=== PATIENT | female | born 1960 | race Caucasian/White ===

== ENCOUNTER 2016-10-24 11:43 | Emergency (ER) | payer SELFPAY ==
[2016-10-24] MEDS ORDERED: Ketorolac 60 MG/2 ML SDV IM ONE (11:48)
--- NOTE | 2016-10-24 11:48 | EDM.PDOC ---
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 She denies any other concern and denies similar episodes in the past Review of systems: As per history of present illness and below otherwise all systems reviewed and negative. Past medical history: As per history of present illness and as reviewed below otherwise noncontributory. Surgical history: As per history of present illness and as reviewed below otherwise noncontributory. Social history: No reported history of drug or alcohol abuse. Family history: As per history of present illness and as reviewed below otherwise noncontributory. Physical exam: HEENT: Atraumatic, normocephalic, pupils reactive, negative for conjunctival pallor or scleral icterus, mucous membranes moist, throat clear, neck supple, nontender, trachea midline. Lungs: Clear to auscultation, breath sounds equal bilaterally, chest nontender. Heart: S1S2, regular, negative for clicks, rubs, or JVD. Abdomen: Soft, nondistended, nontender. Negative for masses or hepatosplenomegaly. Negative for costovertebral tenderness. Pelvis: Stable nontender. Genitourinary: Deferred. Rectal: Deferred. Extremities: Right wrist and hand are without any point tenderness no crepitation C medicine neurovascular exam is unremarkable there is no evidence of any tendon involvement. Neuro: Awake, alert, oriented. Cranial nerves II through XII unremarkable. Cerebellum unremarkable. Motor and sensory unremarkable throughout. Exam nonfocal. Diagnostics: X-ray right wrist right hand Therapeutics: Velcro splint Impression: #1 right wrist/hand pain etiology to determine rule out tenosynovitis Definitive disposition and diagnosis as appropriate pending reevaluation and review of above. - Related Data Allergies Allergy/AdvReac Type Severity Reaction Status Date / Time No Known Allergies Allergy Verified 01/02/15 11:30 Home Meds: Home Meds Atenolol 25 mg PO 07/01/14 [History] Citalopram Hydrobromide [Celexa] 40 mg PO 07/01/14 [History] buPROPion [Wellbutrin] 100 mg PO BID 07/01/14 [History] Ciprofloxacin HCl [Cipro] 250 mg PO 01/02/15 [History] Past Medical History - Past Surgical History Other Musculoskeletal Surgeries/Procedures:: right ankle Social & Family History - Tobacco Use Smoking Status *Q: Current Every Day Smoker Years of Tobacco use: 15 Packs/Tins Daily: 0.5 - Alcohol Use Days Per Week of Alcohol Use: 1 Number of Drinks Per Day: 6 Total Drinks Per Week: 6 - Recreational Drug Use Recreational Drug Use: No Review of Systems - Review of Systems Review Of Systems: ROS reveals no pertinent complaints other than HPI. ED EXAM, GENERAL - Physical Exam Exam: See Below (See dictation) Course - Orders/Labs/Meds Orders: Active Orders 24 hr Category Date Time Status Wrist Comp Min 3V Rt [CR] Stat Exams 10/24/16 11:45 Ordered Departure - Departure Time of Disposition: 11:47 Disposition: Home, Self-Care 01 Condition: Good Clinical Impression: Wrist pain - Discharge Information Additional Instructions: e following information is given to patients seen in the emergency department who are being discharged to home. This information is to outline your options for follow-up care. We provide all patients seen in our emergency department with a follow-up referral. The need for follow-up, as well as the timing and circumstances, are variable depending upon the specifics of your emergency department visit. If you don't have a primary care physician on staff, we will provide you with a referral. We always advise you to contact your personal physician following an emergency department visit to inform them of the circumstance of the visit and for follow-up with them and/or the need for any referrals to a consulting specialist. The emergency department will also refer you to a specialist when appropriate. This referral assures that you have the opportunity for followup care with a specialist. All of these measure are taken in an effort to provide you with optimal care, which includes your followup. Under all circumstances we always encourage you to contact your private physician who remains a resource for coordinating your care. When calling for followup care, please make the office aware that this follow-up is from your recent emergency room visit. If for any reason you are refused follow-up, please contact the [facility] emergency department at and asked to speak to the emergency department charge nurse. [facility] [address] [place] [id number] Motrin/Tylenol as directed splint as directed call to schedule routine appointment with hand surgery above return as needed as discussed - My Orders Last 24 Hours: My Active Orders 10/24/16 11:45 Wrist Comp Min 3V Rt [CR] Stat - Assessment/Plan Last 24 Hours: My Active Orders 10/24/16 11:45 Wrist Comp Min 3V Rt [CR] Stat
[2016-10-24 12:44] VITALS: BP 144/94
--- NOTE | 2016-10-25 16:21 | CR ---
EXAM DATE: 10/24/16 PATIENT'S AGE: 56 Patient: DEZ VIERA Facility: [place], [place] Site . Site : 1960 Study: XRay Extremity Right [id number]/17/2017 12:13:29 PM Ordering Physician: Lorena Garcia Final Report: INDICATION: Hand and wrist pain. TECHNIQUE: Three views right wrist and two views right hand. COMPARISON: None FINDINGS: Bones: No acute fracture. No dislocation. No suspicious bone lesion. Joint spaces: Unremarkable. Soft tissues: Unremarkable. IMPRESSION: No acute osseous abnormality. Dictated by Yakov Bowen MD @ 10/24/2016 12:39:44 PM Dictated by: Yakov Bowen MD @ 10/24/2016 12:39:48 (Electronic Signature) Report Signed by Proxy. SWEETIE
--- NOTE | 2016-10-25 16:22 | CR ---
EXAM DATE: 10/24/16 PATIENT'S AGE: 56 Patient: DEZ VIERA Facility: [place], [place] Site . Site : 1960 Study: XRay Extremity Right [id number]/17/2017 12:14:19 PM Ordering Physician: Lorena Garcia Final Report: INDICATION: Hand and wrist pain. TECHNIQUE: Three views right wrist and two views right hand. COMPARISON: None FINDINGS: Bones: No acute fracture. No dislocation. No suspicious bone lesion. Joint spaces: Unremarkable. Soft tissues: Unremarkable. IMPRESSION: No acute osseous abnormality. Dictated by Yakov Bowen MD @ 10/24/2016 12:40:13 PM Dictated by: Yakov Bowen MD @ 10/24/2016 12:40:22 (Electronic Signature) Report Signed by Proxy. SWEETIE
== END 2016-10-24 12:44 | disposition home or self-care (01) ==
LOC: MW.ED 11:43
DX: M25.531 Pain in right wrist (principal); F17.210 Nicotine dependence, cigarettes, uncomplicated
CPT/HCPCS: 73110; 73120; 96372; 99283; J1885; 99282

== ENCOUNTER 2017-04-01 06:21 | Day surgery (SDC) | payer MEDICAID ==
[2017-04-01] MEDS ORDERED: Scopolamine 1.5 MG Transdermal Patch TRDERM PRN (07:18)
--- NOTE | 2017-04-01 07:18 | PCM.PREANE ---
Preanesthetic Assessment - Anesthesia/Transfusion/Family Hx Anesthesia History: Prior Anesthesia Reaction Type of Anesthesia Reaction: Excessive Nausea/Vomiting Family History of Anesthesia Reaction: No Transfusion History: No Prior Transfusion(s) Intubation History: Unknown - Review of Systems General: No Symptoms Pulmonary: No Symptoms Cardiovascular: No Symptoms Gastrointestinal: No Symptoms Neurological: No Symptoms Other: Reports: None - Physical Assessment Height: 1.65 m Weight: 92.079 kg ASA Class: 2 Mental Status: Alert & Oriented x3 Airway Class: Mallampati = 2 Dentition: Reports: Normal Dentition, Bridge (one tooth upper front) Thyro-Mental Finger Breadths: 3 Mouth Opening Finger Breadths: 3 ROM/Head Extension: Full Lungs: Clear to Auscultation, Normal Respiratory Effort Cardiovascular: Regular Rate, Regular Rhythm - Lab Values: Laboratory Last Values POC Glucose 101 mg/dL (60-110) 04/01/17 06:49 - Allergies Allergies/Adverse Reactions: Allergies Allergy/AdvReac Type Severity Reaction Status Date / Time No Known Allergies Allergy Verified 03/28/17 11:26 - Blood Blood Available: No - Anesthesia Plan Pre-Op Medication Ordered: None - Acknowledgements Anesthesia Type Planned: General Anesthesia Pt an Appropriate Candidate for the Planned Anesthesia: Yes Alternatives and Risks of Anesthesia Discussed w Pt/Guardian: Yes Pt/Guardian Understands and Agrees with Anesthesia Plan: Yes PreAnesthesia Questionnaire Other HEENT History: wears glasses, has upper removable partial denture Cardiovascular History: Reports: Hypertension Gastrointestinal History: Reports: Hiatal Hernia Musculoskeletal History: Reports: Fracture, Other (See Below) Other Musculoskeletal History: hx of fx right ankle, hx of dislocated right elbow Neurological History: Reports: Migraines Psychiatric History: Reports: Depression Endocrine/Metabolic History: Reports: Diabetes, Type II, Obesity/BMI 30+ Other Endocrine/Metabolic History: has taken meds for diabetes in the past- now diet controlled Hematologic History: - Infectious Disease History Infectious Disease History: Reports: Chicken Pox, Influenza - Past Surgical History Female Surgical History: Reports: Hysterectomy, Other (See Below) Other Female Surgeries/Procedures: removable of ovarian cysts Musculoskeletal Surgical History: Reports: ORIF Other Musculoskeletal Surgeries/Procedures:: hx of ORIF right ankle, hardware removed - SUBSTANCE USE Smoking Status *Q: Current Every Day Smoker (trying to quit with nicotine patch , down to few cigarettes per day) Tobacco Use Within Last Twelve Months: Cigarettes Days Per Week of Alcohol Use: 1 Number of Drinks Per Day: 6 Total Drinks Per Week: 6 Recreational Drug Use History: No - HOME MEDS Home Medications: Home Meds Citalopram Hydrobromide [Celexa] 20 mg PO DAILY 07/01/14 [History] buPROPion [Wellbutrin] 150 mg PO DAILY 07/01/14 [History] Atenolol/Chlorthalidone [Atenolol-Chlorthalidone 50-25] 1 tab PO DAILY 03/28/17 [History] Nicotine [Nicoderm CQ] 21 mg TOP DAILY 03/28/17 [History] Pregabalin [Lyrica] 75 mg PO DAILY 03/28/17 [History] atorvaSTATin [Lipitor] 20 mg PO BEDTIME 03/28/17 [History] traMADol [Ultram] 50 mg PO BID PRN 03/28/17 [History] - CURRENT (IN HOUSE) MEDS Current Meds: Current Medications Bupivacaine HCl/Epinephrine Bitart (Marcaine 0.25%/Epinephrine 1:200,000) 10 ml INJECT ONETIME ONE Stop: 04/01/17 08:01 Cefazolin Sodium/Dextrose 2 gm (/ Premix) 50 mls @ 100 mls/hr IV ONETIME ONE Stop: 04/01/17 08:29 Lactated Ringer's (Ringers, Lactated) 1,000 mls @ 500 mls/hr IV .BOLUS JAENTH Last Admin: 04/01/17 07:03 Dose: 500 mls/hr
[2017-04-01] MEDS ORDERED: Propofol 200 MG/20 ML SDV ONE (07:31)
[2017-04-01] MEDS ORDERED: Midazolam 1 MG/ML 2 ML SDV ONE (07:31)
[2017-04-01] MEDS ORDERED: fentaNYL 100 MCG/2 ML SDV ONE (07:31)
[2017-04-01] MEDS ORDERED: Lidocaine 2% 5 ML SDV ONE (07:31)
[2017-04-01] MEDS ORDERED: Bupivacaine 25%/EPINEPHrine/PF 30 ML ONE (07:34)
[2017-04-01] MEDS ORDERED: ceFAZolin/Dextrose,Iso-Osmotic 2 GM/50 ML Duplex Bag IV ONE (07:52)
[2017-04-01] MEDS ORDERED: Bupivacaine 0.25%/EPINEPHrine 1:200,000 10 ML SDV INJECT ONE (08:00)
[2017-04-01] MEDS ORDERED: Lactated Ringers 1,000 ML IV SCH (08:00)
[2017-04-01] MEDS ORDERED: ceFAZolin 2 GM in Premix Bag 1 BAG IV ONE (08:00)
[2017-04-01] MEDS ORDERED: Dexamethasone 4 MG/ML 5 ML MDV ONE (08:15)
[2017-04-01] MEDS ORDERED: ePHEDrine 50 MG/ML SDV ONE (08:23)
[2017-04-01] MEDS ORDERED: Sodium Chloride 0.9% 20 ML ONE (08:24)
[2017-04-01] MEDS ORDERED: Glycopyrrolate 0.2 MG/ML SDV ONE (08:37)
[2017-04-01] MEDS ORDERED: Ketorolac 30 MG/ML SDV ONE (08:50)
[2017-04-01] MEDS ORDERED: Acetaminophen 1,000 MG in Premix Bag 1 BAG IV ONE (09:16)
--- NOTE | 2017-04-01 09:23 | PCM.OPNOTE ---
- General Post-Op/Procedure Note Date of Surgery/Procedure: 04/01/17 Operative Procedure(s): right carpal and cubital tunnel release Pre Op Diagnosis: right carpal and cubital tunnel syndrome Post-Op Diagnosis: Same Anesthesia Technique: General LMA, Local Primary Surgeon: Shaniqua Ovalle Drafting Detailer: Theresa Oliver Reason Drafting Detailer Was Necessary: retraction, prepping draping and closure assistance Complications: None Condition: Good
--- NOTE | 2017-04-01 09:44 | PCM.POSTAN ---
POST ANESTHESIA ASSESSMENT - MENTAL STATUS Mental Status: Alert, Oriented - RESPIRATORY Respiratory Status: Respiratory Rate WNL, Airway Patent, O2 Saturation Stable - CARDIOVASCULAR CV Status: Pulse Rate WNL, Blood Pressure Stable - GASTROINTESTINAL GI Status: No Symptoms - PAIN Pain Score: 5 - POST OP HYDRATION Hydration Status: Adequate & Stable - OBSERVATIONS Free Text/Narrative:: no anesthesia problems
--- NOTE | 2017-04-01 10:12 | PCM48HPAN ---
Post Anesthesia Note - EVALUATION WITHIN 48HRS OF ANESTHETIC Vital Signs in Normal Range: Yes Patient Participated in Evaluation: Yes Respiratory Function Stable: Yes Airway Patent: Yes Cardiovascular Function Stable: Yes Hydration Status Stable: Yes Pain Control Satisfactory: Yes Nausea and Vomiting Control Satisfactory: Yes Mental Status Recovered: Yes Resp Rate: 12 - COMMENTS/OBSERVATIONS Free Text/Narrative:: no anesthesia problems
[2017-04-01 12:18] VITALS: BP 120/75
--- NOTE | 2017-04-01 15:37 | PCM.OPNOTE ---
- General Post-Op/Procedure Note Date of Surgery/Procedure: 04/01/17 Operative Procedure(s): right carpal and cubital tunnel release Pre Op Diagnosis: right carpal and cubital tunnel Post-Op Diagnosis: Same Anesthesia Technique: General LMA, Local Primary Surgeon: Shaniqua Ovalle Teletype Operator: Theresa Oliver Complications: None Condition: Good Free Text/Narrative:: Intake & Output 03/31/17 04/01/17 04/01/17 23:59 07:59 15:59 Intake Total 300 Balance 300
--- NOTE | 2017-04-01 22:48 | OR ---
SURGEON: ANDRES HUMMEL MD DATE OF PROCEDURE: 04/01/2017 PREOPERATIVE DIAGNOSIS: Right carpal and cubital tunnel syndrome. POSTOPERATIVE DIAGNOSIS: Right carpal and cubital tunnel syndrome. PROCEDURE: Right cubital tunnel release and right carpal tunnel release. COOPERATIVE EXTENSION AGENT: ALIE Aguirre. Reason for behavioral assistant was prepping, draping, closure, and positioning assistance. INDICATIONS: Ms. Garg is a 56-year-old female with right upper extremity cubital and carpal tunnel syndrome. Risks and benefits of release were discussed with her. She has failed conservative management and continues to have significant symptoms. Risks were including, but not limited to, bleeding, infection, damage to underlying or overlying structures, possible need for future interventions, possible scarring. PROCEDURE IN DETAIL: After informed consent was obtained and placed on the chart, the patient was brought to the operating theater and laid in supine position. After adequate local general LMA, anesthesia was obtained. The area was prepped and draped and a time-out was completed to confirm side and site. Attention was then paid to exsanguination of the arm and insufflation of the tourniquet 200 mmHg. Attention was then paid to dissection of the transverse carpal ligament using a 15 blade through the skin and subcutaneous tissue with coverage of the ligament. Dissection was then carried distally and proximally until complete release under direct visualization. The area was irrigated and closed using 5-0 nylon stitch in a horizontal mattress fashion. Attention was then paid to the cubital tunnel and a 15 blade was used to dissect through the skin and subcutaneous tissues directly overlying this. A Littler scissor dissection was carried in the subcutaneous plane to allow dissection and prevent nerve disruption. The nerve was reached easily proximal to the cubital tunnel and then dissection was carried distally until complete release all the way through the flexor carpi ulnaris fascia. Once adequately released and then passage of finger allowed free dissection, attention was paid to proximal dissection until complete release again from the brachial fascia. Once adequately completed and released the entire way, meticulous hemostasis was obtained after deflation of the tourniquet. The wound was then closed with deep 3-0 and running 4-0 subcuticular for the skin. It was dressed with Steri-Strips here. The wrist was then dressed with Xeroform fluffs and a Kerlix gauze dressing and the wrist was dressed with a 3- inch Hemanth wrap and the upper arm was dressed with a 3-inch Hemanth wrap for light compression to allow for swelling. The patient tolerated the procedure well. All counts and needles were correct at the end of the case. FOLLOWUP INSTRUCTIONS: The patient was given a prescription for pain control and will see us in 10 to 14 days, sooner if any problems, questions, or concerns. VANESSA / SANTI /[id number]
== END 2017-04-01 10:40 | disposition home or self-care (01) ==
LOC: MW.SDS 06:21
PROVIDERS: ATTEND Plastic Surgery
DX: G56.01 Carpal tunnel syndrome, right upper limb (principal); G56.21 Lesion of ulnar nerve, right upper limb; I10 Essential (primary) hypertension; F32.9 Major depressive disorder, single episode, unspecified; G43.909 Migraine, unspecified, not intractable, without status migrainosus; E11.9 Type 2 diabetes mellitus without complications; E66.9 Obesity, unspecified; F17.210 Nicotine dependence, cigarettes, uncomplicated; Z68.30 Body mass index [BMI] 30.0-30.9, adult; Z79.899 Other long term (current) drug therapy
CPT/HCPCS: 64718; 64721; 82962; A9270; J0690; J1100; J1885; J2250; J3010; J7120; 01810; J2704

== ENCOUNTER 2018-05-01 10:10 | Day surgery (SDC) | payer MEDICAID ==
[~2018-05-01 10:10] MED LIST: Lactated Ringers 1,000 ML IV SCH; ceFAZolin 2 GM in Premix Bag 1 BAG IV ONE
--- NOTE | 2018-05-01 10:57 | PCM.PREANE ---
Preanesthetic Assessment - Anesthesia/Transfusion/Family Hx Anesthesia History: Prior Anesthesia Reaction Family History of Anesthesia Reaction: No Transfusion History: No Prior Transfusion(s) Intubation History: Unknown - Review of Systems General: No Symptoms Pulmonary: No Symptoms Cardiovascular: No Symptoms Gastrointestinal: No Symptoms Neurological: No Symptoms Other: Reports: None - Physical Assessment Height: 1.64 m Weight: 102.058 kg ASA Class: 2 Mental Status: Alert & Oriented x3 Airway Class: Mallampati = 2 Dentition: Reports: Normal Dentition, Bridge (one tooth up front) Thyro-Mental Finger Breadths: 2 Mouth Opening Finger Breadths: 2 ROM/Head Extension: Limited/Partial Lungs: Clear to Auscultation, Normal Respiratory Effort Cardiovascular: Regular Rate, Regular Rhythm - Allergies Allergies/Adverse Reactions: Allergies Allergy/AdvReac Type Severity Reaction Status Date / Time No Known Allergies Allergy Verified 04/26/18 11:23 - Blood Blood Available: No - Anesthesia Plan Pre-Op Medication Ordered: None - Acknowledgements Anesthesia Type Planned: General Anesthesia Pt an Appropriate Candidate for the Planned Anesthesia: Yes Alternatives and Risks of Anesthesia Discussed w Pt/Guardian: Yes Pt/Guardian Understands and Agrees with Anesthesia Plan: Yes PreAnesthesia Questionnaire HEENT History: Reports: Other (See Below) Other HEENT History: wears glasses/contacts, has removable upper "flipper" denture (one tooth) Cardiovascular History: Reports: High Cholesterol, Hypertension Respiratory History: Reports: Other (See Below) (to be tested for sleep apnea) Gastrointestinal History: Reports: GERD, Hiatal Hernia Genitourinary History: Reports: Renal Calculus Musculoskeletal History: Reports: Fracture, Neck Pain, Chronic Other Musculoskeletal History: hx of fx right ankle Neurological History: Reports: Migraines, Other (See Below) Other Neuro History: nerve pain right arm Psychiatric History: Reports: Anxiety, Depression Endocrine/Metabolic History: Reports: Obesity/BMI 30+, Other (See Below) Other Endocrine/Metabolic History: Pre-diabetic Hematologic History: - Infectious Disease History Infectious Disease History: Reports: Chicken Pox, Influenza - Past Surgical History Female Surgical History: Reports: Breast Biopsy, Cystectomy, Hysterectomy, Salpingo-Oophorectomy, Other (See Below) Other Female Surgeries/Procedures: Laparoscopy x3 for removal of Ovarian cysts Musculoskeletal Surgical History: Reports: Carpal Tunnel, ORIF, Other (See Below ) Other Musculoskeletal Surgeries/Procedures:: Cubital tunnel release, Transposition of right Ulnar nerve, ORIF right ankle- no hardware used - SUBSTANCE USE Smoking Status *Q: Current Every Day Smoker (1/2 ppd) Tobacco Use Within Last Twelve Months: Cigarettes Recreational Drug Use History: No - HOME MEDS Home Medications: Home Meds Atenolol/Chlorthalidone [Atenolol-Chlorthalidone 50-25] 1 tab PO DAILY 03/28/17 [History] Pregabalin [Lyrica] 150 mg PO TID 03/28/17 [History] atorvaSTATin [Lipitor] 40 mg PO BEDTIME 03/28/17 [History] Aspirin [Adult Low Dose Aspirin EC] 81 mg PO DAILY 04/26/18 [History] Escitalopram [Lexapro] 20 mg PO DAILY 04/26/18 [History] Lidocaine 5% [Lidoderm 5%] 1 patch TOP DAILY 04/26/18 [History] Nortriptyline HCl [Pamelor] 100 mg PO BEDTIME 04/26/18 [History] - CURRENT (IN HOUSE) MEDS Current Meds: Current Medications Lactated Ringer's (Ringers, Lactated) 1,000 mls @ 125 mls/hr IV ASDIRECTED JANETH Discontinued Medications Cefazolin Sodium/Dextrose 2 gm (/ Premix) 50 mls @ 100 mls/hr IV ONETIME ONE Stop: 04/30/18 22:51
[2018-05-01] MEDS ORDERED: Propofol 200 MG/20 ML SDV ONE (11:10)
[2018-05-01] MEDS ORDERED: Ondansetron 4 MG/2 ML SDV ONE (11:10)
[2018-05-01] MEDS ORDERED: Lidocaine 2% 5 ML SDV ONE (11:10)
[2018-05-01] MEDS ORDERED: fentaNYL 250 MCG/5 ML SDV ONE (11:10)
[2018-05-01] MEDS ORDERED: Midazolam 1 MG/ML 2 ML SDV ONE (11:10)
[2018-05-01] MEDS ORDERED: ceFAZolin 1 GM Vial ONE (11:12)
[2018-05-01] MEDS ORDERED: Sodium Chloride 0.9% 20 ML ONE (11:12)
[2018-05-01] MEDS ORDERED: Bupivacaine 0.5% 30 ML SDV ONE (11:26)
[2018-05-01] MEDS ORDERED: Phenylephrine/Normal Saline 100 MCG/ML 10 ML Syringe ONE (12:15)
[2018-05-01] MEDS ORDERED: Vasopressin 20 Units/1 ML MDV ONE (12:20)
[2018-05-01] MEDS ORDERED: Glycopyrrolate 0.2 MG/ML SDV ONE (12:53)
--- NOTE | 2018-05-01 14:19 | PCM.OPNOTE ---
- General Post-Op/Procedure Note Date of Surgery/Procedure: 05/01/18 Operative Procedure(s): open plantar fasciotomy and plantar calcaneal spur resection right foot Findings: consistent with diagnoses Pre Op Diagnosis: 1. plantar fasciitis right foot. 2. plantar calcaneal spur right foot Post-Op Diagnosis: 1. plantar fasciitis right foot. 2. plantar calcaneal spur right foot Anesthesia Technique: General LMA Primary Surgeon: Brayden Connell Pathology: bone right calcaneal spur EBL in mLs: 5 Complications: none Condition: Good Free Text/Narrative:: Intake & Output 04/30/18 05/01/18 05/01/18 22:59 06:59 14:59 Intake Total 1600 Balance 1600 materials: 4-0 vicryl, 3-0 prolene injectables: 10 ml 0.5% marcaine plain
--- NOTE | 2018-05-01 14:31 | PN ---
SUBJECTIVE: The patient is a 57-year-old female. Date of surgery is May 01, 2018. Surgeon is Brayden Connell DPM. PLANNED PROCEDURE: Open plantar fasciotomy and plantar calcaneal spur resection, right foot. ALLERGIES: No known drug allergies. PAST MEDICAL HISTORY: Active problems include arm pain, depression, type 2 diabetes, headache, hand pain, hypertension, neck pain, and the patient is a current smoker, also possible sleep apnea. PAST SURGICAL HISTORY: Procedure history of total hysterectomy, right ankle surgery, three laparoscopies for ovarian cysts, and a right cubital tunnel release. The patient has no difficulty with anesthesia from her prior surgical history. LABORATORY DATA: Sodium 138, potassium 3.4, BUN is 14, CO2 29, chloride 101, glucose 94. Hemoglobin 16, hematocrit 47.1, white blood cell 5.64, red blood cell 9.18, platelets 268. Chest x-ray showed no acute abnormality and EKG did have an abnormality and the patient was then sent for cardiac clearance especially given a family history of heart disease, so the patient was cleared by the washroom operator, Dr. Petty, with statement that she is intermediate risk for surgery but otherwise requires no further cardiac workup and is cleared for surgery. The patient presents for surgical treatment today consisting of an open plantar fasciotomy and calcaneal spur resection of the right foot. No guarantees have been expressed or implied. All of patient's questions have been answered. Risks and benefits have been discussed with the patient, and the patient has consented in writing with a witness present and written consent has been placed in the patient's chart. MILTON / SANTI /[id number]
--- NOTE | 2018-05-01 14:35 | PCM.POSTAN ---
POST ANESTHESIA ASSESSMENT - MENTAL STATUS Mental Status: Alert - RESPIRATORY Respiratory Status: Respiratory Rate WNL - CARDIOVASCULAR CV Status: Pulse Rate WNL, Blood Pressure Stable - GASTROINTESTINAL GI Status: No Symptoms - PAIN Pain Score: 2 - POST OP HYDRATION Hydration Status: Adequate & Stable
[2018-05-01] MEDS ORDERED: Acetaminophen/HYDROcodone 325-7.5 MG Tab PO ONE (15:18)
[2018-05-01] MEDS ORDERED: Acetaminophen/HYDROcodone 325-5 MG Tab PO ONE (15:45)
[2018-05-01] MEDS ORDERED: fentaNYL 100 MCG/2 ML SDV IVPUSH PRN (16:05)
[2018-05-01 16:41] VITALS: BP 110/65
--- NOTE | 2018-05-02 05:28 | OR ---
SURGEON: Brayden Connell DPM DATE OF PROCEDURE: 05/01/2018 PRIMARY SURGEON: Brayden Connell DPM OPERATIVE PROCEDURE: Open plantar fasciotomy and resection of plantar calcaneal spur, right foot. PREOPERATIVE DIAGNOSIS: Plantar fasciitis and plantar calcaneal spur, right foot. POSTOPERATIVE DIAGNOSIS: Plantar fasciitis and plantar calcaneal spur, right foot. ANESTHESIA: General. HEMOSTASIS: Above-ankle pneumatic tourniquet inflated to a pressure of 250 mmHg after an Esmarch bandage exsanguination of the right lower extremity. ESTIMATED BLOOD LOSS: 5 mL. PATHOLOGY: Bone from plantar calcaneal spur, right foot. MATERIALS: 4-0 Vicryl, 3-0 nylon. INJECTABLES: 10 mL of 0.5% Marcaine plain. FINDINGS: Consistent with diagnoses. COMPLICATIONS: None. CONDITION: The patient tolerated the procedure and the anesthesia well with vital signs stable and neurovascular status intact to all digits of the right foot. JUSTIFICATION FOR THE PROCEDURE: The patient has suffered for a long time with right heel pain and has undergone numerous conservative treatments to the right foot including stretching exercises, supports, and steroid injections as well as casting and use of pneumatic boot, none of which have provided satisfactory relief to the patient, and the patient has elected for surgery consisting of open plantar fasciotomy and resection of the plantar calcaneal spur. The patient did have x-ray prior to coming to my office, which demonstrated an 11 mm plantar spur which is significant and possibly contributing to her pain. The patient and I discussed the risks and benefits of surgery. All the patient questions were asked and answered, and no guarantees were expressed or implied. The patient gave written consent with a witness present, and it was placed in the patient's chart consenting for the surgical procedures today. PROCEDURE IN DETAIL: Open plantar fasciotomy with plantar calcaneal spur resection, right foot. The patient was brought to the operating room, placed on the operating table in a supine position, at which time an aseptic scrub and drape was performed about the patient's right lower extremity. The above-ankle pneumatic tourniquet was affixed just above the malleoli of the right ankle. The patient was scrubbed and draped. Preoperative x-ray was taken documenting the plantar calcaneal spur, and following the inflation of the tourniquet, an incision was made from medial to lateral across the medial half of the plantar heel just distal to the location of the plantar calcaneal spur following the planned marked incision site. The incision was made with a #15 blade and deepened through the skin into the subcutaneous tissue, which was then dissected with a combination of sharp and blunt dissection and use of the Bovie to cut through the fat layer until the plantar fascia was reached, and using a Weitlaner retractor, self-retaining, the plantar fascia was exposed and readily identified, and the plantar spur was palpated using a Poplar elevator as well as a hemostat within the fibers and just deep to the plantar fascia. A #15 blade was used to cut the majority of the medial half of the plantar fascia, cutting the medial band of the fascia. Cautery was used to remove a small piece of the fascia in order to leave a gap of approximately half a centimeter to ensure that fascia did not reattach. This also enabled ready access to the plantar calcaneal spur, which was palpated, visualized, confirmed with intraoperative fluoroscopy, and resected using an osteotome and bone rongeur to remove segments of the spur, which were sent to Pathology for gross examination. The remaining spur was then rasped smooth using a reciprocating rasp, and the area which had already been flushed was flushed again with copious amounts of normal sterile saline, and the remnants were flushed out of the resected spur. The area was reinspected, judged to be properly resected regarding the spur, and the plantar fascia was sufficiently cut on the medial side to enable relief of the patient's symptoms. The area was then closed with the subcutaneous fat reapproximated using 4-0 Vicryl, and the superficial skin reapproximated with multiple 3-0 nylon horizontal sutures. 10 mL of 0.5% Marcaine plain was infiltrated about the surgical sites. Betadine- soaked Xeroform gauze was placed over the incision site. Final intraoperative x- ray was taken and demonstrated full resection of the plantar calcaneal spur which additional x-rays prior to that had already verified as well following the resection. The Betadine-soaked Xeroform gauze overlying the incision site was then covered with 4 x 4 fluff gauze and Kerlix roll. The tourniquet was then deflated at a time of 74 minutes, and a stockinette and cast padding followed by multiple rolls of fiberglass cast were then applied to protect the patient's foot during the recovery period as agreed with the patient prior to surgery. The patient tolerated the procedure and the anesthesia well with vital signs stable and vascular status intact as verified by prompt hyperemic response to the digits of the right foot following deflation of the tourniquet. Once in the recovery room, the cast was bivalved and secured with Hemanth bandages to allow for any swelling that may occur, and the patient has been provided with prescription for adequate analgesic care and written instructions regarding followup and contact information for both my office and cell phone should she need it, and to schedule the followup within 2 weeks. The patient is instructed to contact me with any questions she may have and has also been provided with crutches to ensure nonweightbearing status over the initial recovery period. MILTON / SANTI /[id number]
--- NOTE | 2018-05-02 14:18 | CR ---
EXAMINATION: Right foot HISTORY: Fasciotomy COMPARISON: None TECHNIQUE: 2 views FINDINGS/IMPRESSION: Operative control films demonstrate removal of a plantar calcaneus.
== END 2018-05-01 16:40 | disposition home or self-care (01) ==
LOC: MW.SDS 10:10
PROVIDERS: ATTEND Podiatrist Foot & Ankle Surgery
DX: M72.2 Plantar fascial fibromatosis (principal); M77.31 Calcaneal spur, right foot; I10 Essential (primary) hypertension; E11.9 Type 2 diabetes mellitus without complications; F17.200 Nicotine dependence, unspecified, uncomplicated; E66.9 Obesity, unspecified; Z68.37 Body mass index [BMI] 37.0-37.9, adult; E78.5 Hyperlipidemia, unspecified; Z79.899 Other long term (current) drug therapy
CPT/HCPCS: 28119; A9270; J0690; J2001; J2250; J2370; J2704; J3010; J3490; J7120; 01470; J2405

== ENCOUNTER 2018-05-23 21:19 | Emergency (ER) | payer MEDICAID ==
--- NOTE | 2018-05-23 21:42 | EDM.PDOC ---
ED HPI GENERAL MEDICAL PROBLEM - General Stated Complaint: POSSIBLE INFECTION IN RT HEEL Time Seen by Provider: 05/23/18 21:26 - History of Present Illness INITIAL COMMENTS - FREE TEXT/NARRATIVE: HISTORY AND PHYSICAL: History of present illness: Patient 58-year-old female with recent foot surgery present since her possible infection to her right heel there's been no fever no chills no other complaints she has had a mild wound dehiscence with some scant discharge per family is been no other concern or trauma. Review of systems: As per history of present illness and below otherwise all systems reviewed and negative. Past medical history: As per history of present illness and as reviewed below otherwise noncontributory. Surgical history: As per history of present illness and as reviewed below otherwise noncontributory. Social history: No reported history of drug or alcohol abuse. Family history: As per history of present illness and as reviewed below otherwise noncontributory. Physical exam: HEENT: Atraumatic, normocephalic, pupils reactive, negative for conjunctival pallor or scleral icterus, mucous membranes moist, throat clear, neck supple, nontender, trachea midline. Lungs: Clear to auscultation, breath sounds equal bilaterally, chest nontender. Heart: S1S2, regular, negative for clicks, rubs, or JVD. Abdomen: Soft, nondistended, nontender. Negative for masses or hepatosplenomegaly. Negative for costovertebral tenderness. Pelvis: Stable nontender. Genitourinary: Deferred. Rectal: Deferred. Extremities: Right heel has a wound that is healing with some superficial dehiscence noted in some scant discharge noted on the Band-Aid is minimal swelling no erythema no malodor or other significant finding CMS neurovascular exams unremarkable Neuro: Awake, alert, oriented. Cranial nerves II through XII unremarkable. Cerebellum unremarkable. Motor and sensory unremarkable throughout. Exam nonfocal. Diagnostics: CBC CMP x-ray right Therapeutics: None Impression: #1 history of recent foot surgery rule out postoperative infection Definitive disposition and diagnosis as appropriate pending reevaluation and review of above. - Related Data Allergies Allergy/AdvReac Type Severity Reaction Status Date / Time No Known Allergies Allergy Verified 04/26/18 11:23 Home Meds: Home Meds Atenolol/Chlorthalidone [Atenolol-Chlorthalidone 50-25] 1 tab PO DAILY 03/28/17 [History] Pregabalin [Lyrica] 150 mg PO TID 03/28/17 [History] atorvaSTATin [Lipitor] 40 mg PO BEDTIME 03/28/17 [History] Aspirin [Adult Low Dose Aspirin EC] 81 mg PO DAILY 04/26/18 [History] Escitalopram [Lexapro] 20 mg PO DAILY 04/26/18 [History] Lidocaine 5% [Lidoderm 5%] 1 patch TOP DAILY 04/26/18 [History] Nortriptyline HCl [Pamelor] 100 mg PO BEDTIME 04/26/18 [History] Past Medical History HEENT History: Reports: Other (See Below) Other HEENT History: wears glasses/contacts, has removable upper "flipper" denture (one tooth) Cardiovascular History: Reports: High Cholesterol, Hypertension Respiratory History: Reports: Other (See Below) Gastrointestinal History: Reports: GERD, Hiatal Hernia Genitourinary History: Reports: Renal Calculus Musculoskeletal History: Reports: Fracture, Neck Pain, Chronic Other Musculoskeletal History: hx of fx right ankle Neurological History: Reports: Migraines, Other (See Below) Other Neuro History: nerve pain right arm Psychiatric History: Reports: Anxiety, Depression Endocrine/Metabolic History: Reports: Obesity/BMI 30+, Other (See Below) Other Endocrine/Metabolic History: Pre-diabetic Hematologic History: - Infectious Disease History Infectious Disease History: Reports: Chicken Pox, Influenza - Past Surgical History Female Surgical History: Reports: Breast Biopsy, Cystectomy, Hysterectomy, Salpingo-Oophorectomy, Other (See Below) Other Female Surgeries/Procedures: Laparoscopy x3 for removal of Ovarian cysts Musculoskeletal Surgical History: Reports: Carpal Tunnel, ORIF, Other (See Below ) Other Musculoskeletal Surgeries/Procedures:: Cubital tunnel release, Transposition of right Ulnar nerve, ORIF right ankle- no hardware used ED ROS GENERAL - Review of Systems Review Of Systems: ROS reveals no pertinent complaints other than HPI. ED EXAM, GENERAL - Physical Exam Exam: See Below (See dictation) Course - Orders/Labs/Meds Orders: Active Orders 24 hr Category Date Time Status Foot 2V Rt [CR] Stat Exams 05/23/18 21:27 Ordered CBC WITH AUTO DIFF [HEME] Stat Lab 05/23/18 21:27 Ordered COMPREHENSIVE METABOLIC PN,CMP [CHEM] Stat Lab 05/23/18 21:27 Ordered Departure - Departure Time of Disposition: 21:41 Disposition: Home, Self-Care 01 Condition: Good Clinical Impression: Postoperative wound infection, Encounter for medical screening examination - Discharge Information Referrals: PCP,None [Primary Care Provider] - Additional Instructions: The following information is given to patients seen in the emergency department who are being discharged to home. This information is to outline your options for follow-up care. We provide all patients seen in our emergency department with a follow-up referral. The need for follow-up, as well as the timing and circumstances, are variable depending upon the specifics of your emergency department visit. If you don't have a primary care physician on staff, we will provide you with a referral. We always advise you to contact your personal physician following an emergency department visit to inform them of the circumstance of the visit and for follow-up with them and/or the need for any referrals to a consulting specialist. The emergency department will also refer you to a specialist when appropriate. This referral assures that you have the opportunity for followup care with a specialist. All of these measure are taken in an effort to provide you with optimal care, which includes your followup. Under all circumstances we always encourage you to contact your private physician who remains a resource for coordinating your care. When calling for followup care, please make the office aware that this follow-up is from your recent emergency room visit. If for any reason you are refused follow-up, please contact the [facility] emergency department at and asked to speak to the emergency department charge nurse. Keflex as prescribed follow-up private medical doctor/podiatry as discussed return as needed as discussed - My Orders Last 24 Hours: My Active Orders 05/23/18 21:27 Foot 2V Rt [CR] Stat CBC WITH AUTO DIFF [HEME] Stat COMPREHENSIVE METABOLIC PN,CMP [CHEM] Stat - Assessment/Plan Last 24 Hours: My Active Orders 05/23/18 21:27 Foot 2V Rt [CR] Stat CBC WITH AUTO DIFF [HEME] Stat COMPREHENSIVE METABOLIC PN,CMP [CHEM] Stat
--- NOTE | 2018-05-23 22:13 | CR ---
Indication: Right foot pain. Technique: Right foot 2 views Comparison: None Findings: Bones: Alignment is normal. No fractures or bone lesions. Joint spaces: Joint spaces are well maintained. No degenerative changes. Soft tissues: Minimal calcification near the base of the calcaneus, plantar surface. Impression: 1. No evidence of fracture or dislocation. 2. Calcification at the base of the calcaneus which is nonspecific but can be seen in chronic plantar fasciitis. Dictated by Aime Berger MD @ May 23 2018 10:06PM Signed by Dr. Aime Berger @ May 23 2018 10:12PM
[2018-05-23 22:27] LABS: CHLORIDE,CL 102 mmol/L (98-107); SODIUM,NA 139 mmol/L (136-145)
[2018-05-23 23:02] VITALS: BP 119/74
== END 2018-05-23 22:45 | disposition home or self-care (01) ==
LOC: MW.ED 21:19
DX: T81.33XA Disruption of traumatic injury wound repair, initial encounter (principal); F41.9 Anxiety disorder, unspecified; F32.9 Major depressive disorder, single episode, unspecified; I10 Essential (primary) hypertension; E78.00 Pure hypercholesterolemia, unspecified; K21.9 Gastro-esophageal reflux disease without esophagitis; Z79.899 Other long term (current) drug therapy; Z79.82 Long term (current) use of aspirin
CPT/HCPCS: 36415; 73620-26-RT; 73620-RT; 80053; 85025; 99283; 99283-25

== ENCOUNTER 2020-09-03 11:32 | Emergency (ER) | payer MEDICARE, OTHER ==
--- NOTE | 2020-09-03 11:49 | EDM.PDOC ---
ED HPI GENERAL MEDICAL PROBLEM - General Chief Complaint: Lower Extremity Injury/Pain Stated Complaint: POSSIBLE BROKEN LEFT DEVONTE Time Seen by Provider: 09/03/20 11:34 Source of Information: Reports: Patient History Limitations: Reports: No Limitations - History of Present Illness INITIAL COMMENTS - FREE TEXT/NARRATIVE: HISTORY AND PHYSICAL: History of present illness: Patient is a 60-year-old female who presents to the emergency room with complaints of left ankle and foot pain. Patient states that she has chronic vertigo and had an episode of dizziness when she tripped on her couch and tried to "catch myself". She rolled her ankle with her foot getting caught underneath her and now has 10/10 pain. Patient denies hitting her head or having any loss of consciousness. Denies any other bodily injury. Patient denies any fever, chills, headache, change in vision, syncope or near syncope. Denies any chest pain, back pain, shortness of breath or cough. Denies any GI or symptoms. Patient has been eating and drinking appropriately. Review of systems: As per history of present illness and below otherwise all systems reviewed and negative. Past medical history: As per history of present illness and as reviewed below otherwise noncontributory. Surgical history: As per history of present illness and as reviewed below otherwise noncontributory. Social history: See social history for further information Family history: As per history of present illness and as reviewed below otherwise noncontributory. Physical exam: General: Well developed and well nourished 60-year-old female. Alert and orientated x 3. Nontoxic in appearance and in no acute distress. Vital signs are stable and have been reviewed by me. Nursing notes were reviewed. HEENT: Atraumatic, normocephalic, pupils equal and reactive bilaterally, negative for conjunctival pallor or scleral icterus, mucous membranes moist, trachea midline. No drooling or trismus noted. No meningeal signs. No hot potato voice noted. Lungs: Clear to auscultation bilaterally. No wheezes, rales, or rhonchi. Chest nontender. Normal work of breathing, no accessory muscles used. Heart: S1S2, regular rate and rhythm without overt murmur, gallops, or rubs. No JVD. No peripheral edema Abdomen: Soft, nondistended, nontender. Normoactive bowel sounds. Negative costovertebral tenderness. Pelvis: Stable nontender. Skin: Intact, warm, dry. No lesions or rashes noted. Hematologic: No petechiae or purpra. Mucosa appropriate color and normal nail bed color and refill. Extremities: Pain with palpation of the medial and lateral malleolus of the left foot. She does have tenderness with palpation of the anterior midfoot. +CMS, good extension of the ankle. Strong pedal and pretibial pulses. Moves all ext remities per self without difficulty or deficits, negative for cords or calf pain. Neurovascular unremarkable. Neuro: Awake, alert, oriented. Cranial nerves II through XII unremarkable. Cerebellum unremarkable. Motor and sensory unremarkable throughout. Exam nonfocal. Psychiatric: Mood and affect are appropriate. Normal thought process. Answering questions appropriately. Notes: *This patient was seen and evaluated during the 2019 SARS-CoV-2 novel coronavirus pandemic period. Community viral transmission is ongoing at time of this encounter and the emergency department is operating under pandemic response procedures. Patient is a 60-year-old female who presents to the emergency room with complaints of left foot and ankle pain after tripping over her couch. Patient does have tenderness to the medial and lateral malleolus. No obvious injury, soft tissue swelling or abrasions are noted. She has strong pulses and cap refill. We will do an x-ray. Patient states that she has chronic vertigo, today is no different. She is agreeable to an EKG but declines lab work. Marked malleolar soft tissue swelling without evidence of displaced fracture. Nondisplaced fractures at the bases of the 2nd, 3rd, and 4th metatarsals with associated soft tissue swelling. Injury to the adjacent Lisfranc ligament is not entirely excluded however there is no evidence of significant 1st and 2nd metat arsal base interspace widening. CAM walker boot and crutches for left foot fractures of multiple metatarsals. To be nonweightbearing until follow up with orthopedics/podiatry. I have talked with the patient about today's findings, in addition to providing specific details for plan of care. Patient states she has had a appointments previous with Dr. Connell, she was encouraged to follow-up with him for further care and management. Reassessment at the time of disposition demonstrates that the patient is in no acute distress. The patient is stable for discharge, counseling was provided and we discussed in great detail signs and symptoms that would prompt them to return to the Emergency Department. Medication, follow up and supportive care measures were reviewed and discussed. Voices understanding and is agreeable to plan of care. Denies any further questions or concerns at this time. Diagnostics: X-ray left ankle Therapeutics: [facility] Prescription: [facility] Impression: Metatarsal fractures, left foot Plan: 1. You were evaluated today on an emergent basis. You have nondisplaced fracutres at the bases of the 2nd, 3rd, and 4th metatarsals with associated soft tissue swelling. Rest, ice, elevate the extremity as able. Please be nonweightbearing and use the crutches and Cam walker boot until you follow-up with podiatry. Please call Dr. Nugent's office today to set up a follow-up a ppointment. 2. You can alternate Tylenol and ibuprofen as needed for pain and fever management. Hydrocodone/acetaminophen (norc is a narcotic pain medication and may cause drowsiness. Please make sure you take this medication when you are not driving or needing to be functioning outside of the house.o) 3. We encourage you to follow up with your primary care provider and/or recommended specialist in the next few days for re-evaluation and further care/management. 4. If your symptoms should worsen, new symptoms develop or any of the signs and symptoms we discussed should arise please return to the emergency room or call 911 (if needed). Definitive disposition and diagnosis as appropriate pending reevaluation and review of above. Left Ankle Pain Score (Numeric/FACES): 10 - Related Data Allergies Allergy/AdvReac Type Severity Reaction Status Date / Time No Known Allergies Allergy Verified 09/03/20 12:08 Home Meds: Home Meds Atenolol/Chlorthalidone [Atenolol-Chlorthalidone 50-25] 1 tab PO DAILY 03/28/17 [History] Pregabalin [Lyrica] 150 mg PO TID 03/28/17 [History] atorvaSTATin [Lipitor] 40 mg PO BEDTIME 03/28/17 [History] Aspirin [Adult Low Dose Aspirin EC] 81 mg PO DAILY 04/26/18 [History] Escitalopram [Lexapro] 20 mg PO DAILY 04/26/18 [History] Nortriptyline HCl [Pamelor] 100 mg PO BEDTIME 04/26/18 [History] Hydrocodone/Acetaminophen [HYDROcodone-Acetaminophen 5-325 MG] 1 - 2 tab PO Q4HR PRN #20 tablet 09/03/20 [Rx] Past Medical History HEENT History: Reports: Other (See Below) Other HEENT History: wears glasses/contacts, has removable upper "flipper" denture (one tooth) Cardiovascular History: Reports: High Cholesterol, Hypertension Respiratory History: Reports: Other (See Below) Gastrointestinal History: Reports: GERD, Hiatal Hernia Genitourinary History: Reports: Renal Calculus FEATHER SHAPER History: Reports: Musculoskeletal History: Reports: Fracture, Neck Pain, Chronic Other Musculoskeletal History: hx of fx right ankle Neurological History: Reports: Migraines, Other (See Below) Other Neuro History: nerve pain right arm Psychiatric History: Reports: Anxiety, Depression Endocrine/Metabolic History: Reports: Obesity/BMI 30+, Other (See Below) Other Endocrine/Metabolic History: Pre-diabetic Hematologic History: - Infectious Disease History Infectious Disease History: Reports: Chicken Pox, Influenza - Past Surgical History Female Surgical History: Reports: Breast Biopsy, Cystectomy, Hysterectomy, Salpingo-Oophorectomy, Other (See Below) Other Female Surgeries/Procedures: Laparoscopy x3 for removal of Ovarian cysts Musculoskeletal Surgical History: Reports: Carpal Tunnel, ORIF, Other (See Below) Other Musculoskeletal Surgeries/Procedures:: Cubital tunnel release, Transposition of right Ulnar nerve, ORIF right ankle- no hardware used Review of Systems - Review of Systems Review Of Systems: Comprehensive ROS is negative, except as noted in HPI. ED EXAM, GENERAL - Physical Exam Exam: See Below (See dictation) ED TRAUMA EXTREMITY PROCEDURES - Splinting Left foot Splint Site: Left ankle/foot Pre-Procedure NV Status: Normal Post-Procedure NV Status: Normal Splint Material: Boot Orthotic, Other (Crutches) Applied & Form Fitted By: Provider Provider Post-Splint Application NV Check: NV Status Normal, Good Position Complications: No Course - Vital Signs Last Recorded V/S: Last Vital Signs Temp 97.0 F 09/03/20 11:50 Pulse 62 09/03/20 11:50 Resp BP 115/71 09/03/20 11:50 Pulse Ox 95 09/03/20 11:50 - Orders/Labs/Meds Orders: Active Orders 24 hr Category Date Time Status EKG Documentation Completion [RC] STAT Care 09/03/20 12:21 Active DME for Discharge [COMM] Stat Oth 09/03/20 13:20 Ordered Meds: Medications Discontinued Medications Generic Name Dose Route Start Last Admin Trade Name Freq PRN Reason Stop Dose Admin Hydrocodone Bitart/Acetaminophen 1 tab 09/03/20 12:16 09/03/20 12:23 Acetaminophen/Hydrocodone 325-5 Mg Tab PO 09/03/20 12:17 1 tab ONETIME ONE Administration Departure - Departure Time of Disposition: 13:25 Disposition: Home, Self-Care 01 Clinical Impression: Metatarsal fracture Qualifiers: Encounter type: initial encounter Fracture type: closed Fracture alignment: nondisplaced Laterality: left - Discharge Information Prescriptions: Hydrocodone/Acetaminophen [HYDROcodone-Acetaminophen 5-325 MG] 1 - 2 tab PO Q4HR PRN #20 tablet PRN Reason: Pain (Moderate 4-6) Instructions: Metatarsal Fracture Referrals: Britney Cook DO [Primary Care Provider] - Forms: ED Department Discharge Additional Instructions: The following information is given to patients seen in the emergency department who are being discharged to home. This information is to outline your options for follow-up care. We provide all patients seen in our emergency department with a follow-up referral. The need for follow-up, as well as the timing and circumstances, are variable depending upon the specifics of your emergency department visit. If you don't have a primary care physician on staff, we will provide you with a referral. We always advise you to contact your personal physician following an emergency department visit to inform them of the circumstance of the visit and for follow-up with them and/or the need for any referrals to a consulting specialist. The emergency department will also refer you to a specialist when appropriate. This referral assures that you have the opportunity for follow-up care with a specialist. All of these measure are taken in an effort to provide you with optimal care, which includes your follow-up. Under all circumstances we always encourage you to contact your private physician who remains a resource for coordinating your care. When calling for follow-up care, please make the office aware that this follow-up is from your recent emergency room visit. If for any reason you are refused follow-up, please contact the [facility] Department at and asked to speak to the emergency department charge nurse. [facility] [address] [place] [address] [facility] [address] [place] [address] Thank you for choosing the [facility] emergency department in [place] for your medical needs today. It was a pleasure caring for you. Today you were seen in the emergency department for foot and ankle injury. 1. You were evaluated today on an emergent basis. You have nondisplaced fractures at the bases of the 2nd, 3rd, and 4th metatarsals with associated soft tissue swelling. Rest, ice, elevate the extremity as able. Please be nonweightbearing and use the crutches and Cam walker boot until you follow-up with podiatry. Please call Dr. Nugent's office today to set up a follow-up appointment. 2. You can alternate Tylenol and ibuprofen as needed for pain and fever management. Hydrocodone/acetaminophen (norc is a narcotic pain medication and may cause drowsiness. Please make sure you take this medication when you are not driving or needing to be functioning outside of the house.o) 3. We encourage you to follow up with your primary care provider and/or recommended specialist in the next few days for re-evaluation and further care/management. 4. If your symptoms should worsen, new symptoms develop or any of the signs and symptoms we discussed should arise please return to the emergency room or call 911 (if needed). Sepsis Event Note (ED) - Focused Exam Vital Signs: Vital Signs Temp Pulse BP Pulse Ox 09/03/20 11:50 97.0 F 62 115/71 95 - My Orders Last 24 Hours: My Active Orders 09/03/20 12:21 EKG Documentation Completion [RC] STAT 09/03/20 13:20 DME for Discharge [COMM] Stat - Assessment/Plan Last 24 Hours: My Active Orders 09/03/20 12:21 EKG Documentation Completion [RC] STAT 09/03/20 13:20 DME for Discharge [COMM] Stat
[2020-09-03 12:11] VITALS: BP 115/71; PULSE 62
[2020-09-03] MEDS ORDERED: Acetaminophen/HYDROcodone 325-5 MG Tab PO ONE (12:16)
--- NOTE | 2020-09-03 12:57 | CR ---
Indication: Pain Comparison: None available. Technique: AP, Lateral, and Oblique views left ankle were obtained Findings: There is no displaced fracture or dislocation. The ankle mortise is symmetrical. The talar dome is smooth and intact. The joint spaces are otherwise grossly preserved. There is marked malleolar soft tissue swelling. Impression: Marked malleolar soft tissue swelling without evidence of displaced fracture. Dictated by Bayron Patel MD @ 09/03/2020 12:55:[address] Bayron Patel @ Sep 03 2020 12:55PM
--- NOTE | 2020-09-03 13:10 | CR ---
Indication: Pain Comparison: None available. Technique: AP, Lateral, and Oblique views left foot were obtained Findings: There are nondisplaced fractures of the bases of the 2nd, 3rd and 4th metatarsals. No other displaced injuries are appreciated. There are hammertoe deformities of the 2nd through 5th digits. There is moderate dorsal soft tissue swelling. Impression: Nondisplaced fractures at the bases of the 2nd, 3rd, and 4th metatarsals with associated soft tissue swelling. Injury to the adjacent Lisfranc ligament is not entirely excluded however there is no evidence of significant 1st and 2nd metatarsal base interspace widening. Dictated by Bayron Patel MD @ 09/03/2020 1:08:[address] Bayron Patel @ Sep 03 2020 1:08PM
--- NOTE | 2020-09-03 13:13 | PCM.EKG ---
#1 Interpretation EKG Date: 09/03/20 Time: 13:12 EKG Interpretation Comments: 61, sinus bradycardia, nonspecific ST/T findings. No delta wave, no definitive Brugada's. No QT prolongation. No hypertrophic cardiomyopathy
== END 2020-09-03 14:41 | disposition home or self-care (01) ==
LOC: MW.ED 11:32
DX: S92.325A Nondisplaced fracture of second metatarsal bone, left foot, initial encounter for closed fracture (principal); S92.335A Nondisplaced fracture of third metatarsal bone, left foot, initial encounter for closed fracture; S92.345A Nondisplaced fracture of fourth metatarsal bone, left foot, initial encounter for closed fracture; E78.00 Pure hypercholesterolemia, unspecified; I10 Essential (primary) hypertension; E66.9 Obesity, unspecified; Z68.37 Body mass index [BMI] 37.0-37.9, adult; W23.0XXA Caught, crushed, jammed, or pinched between moving objects, initial encounter
CPT/HCPCS: 73610; 73630; 93005; 99283; A9270

== ENCOUNTER 2020-11-09 13:18 | Emergency (ER) | payer MEDICARE, OTHER ==
[2020-11-09] MEDS ORDERED: Sodium Chloride 0.9% 2.5 ML Syringe FLUSH PRN (16:38)
[2020-11-09] MEDS ORDERED: Sodium Chloride 0.9% 1,000 ML IV ONE (16:38)
[2020-11-09] MEDS ORDERED: Sodium Chloride 0.9% 10 ML Syringe FLUSH PRN (16:38)
--- NOTE | 2020-11-09 16:42 | EDM.PDOC ---
ED HPI GENERAL MEDICAL PROBLEM - General Chief Complaint: Cardiovascular Problem Stated Complaint: low blood pressure Time Seen by Provider: 11/09/20 14:54 Source of Information: Reports: Patient History Limitations: Reports: No Limitations - History of Present Illness INITIAL COMMENTS - FREE TEXT/NARRATIVE: 52-year-old female past medical history HTN, hyperlipidemia, depression, anxiety presents for hypotension and dizziness. Patient notes that she had been on atenolol but would get very dizzy and had frequent falls. Her primary care physician noted her blood pressure to be low and took her off of the atenolol, kept her on chlorthalidone, and added verapamil. This was last week. Ever since she has had return of dizziness, feeling like she will fall, fatigue. No CP or SOB. Notes that BP has been 70-80s/50s. - Related Data Allergies Allergy/AdvReac Type Severity Reaction Status Date / Time No Known Allergies Allergy Verified 09/03/20 12:08 Home Meds: Home Meds Atenolol/Chlorthalidone [Atenolol-Chlorthalidone 50-25] 1 tab PO DAILY 03/28/17 [History] Pregabalin [Lyrica] 150 mg PO TID 03/28/17 [History] atorvaSTATin [Lipitor] 40 mg PO BEDTIME 03/28/17 [History] Aspirin [Adult Low Dose Aspirin EC] 81 mg PO DAILY 04/26/18 [History] Escitalopram [Lexapro] 20 mg PO DAILY 04/26/18 [History] Nortriptyline HCl [Pamelor] 100 mg PO BEDTIME 04/26/18 [History] Hydrocodone/Acetaminophen [HYDROcodone-Acetaminophen 5-325 MG] 1 - 2 tab PO Q4HR PRN #20 tablet 09/03/20 [Rx] Past Medical History HEENT History: Reports: Other (See Below) Other HEENT History: wears glasses/contacts, has removable upper "flipper" denture (one tooth) Cardiovascular History: Reports: High Cholesterol, Hypertension Respiratory History: Reports: Other (See Below) Gastrointestinal History: Reports: GERD, Hiatal Hernia Genitourinary History: Reports: Renal Calculus [facility] CHIE[facility] History: Reports: Musculoskeletal History: Reports: Fracture, Neck Pain, Chronic Other Musculoskeletal History: hx of fx right ankle Neurological History: Reports: Migraines, Other (See Below) Other Neuro History: nerve pain right arm Psychiatric History: Reports: Anxiety, Depression Endocrine/Metabolic History: Reports: Obesity/BMI 30+, Other (See Below) Other Endocrine/Metabolic History: Pre-diabetic Hematologic History: - Infectious Disease History Infectious Disease History: Reports: Chicken Pox, Influenza, Measles - Past Surgical History Female Surgical History: Reports: Breast Biopsy, Cystectomy, Hysterectomy, Salpingo-Oophorectomy, Other (See Below) Other Female Surgeries/Procedures: Laparoscopy x3 for removal of Ovarian cysts Musculoskeletal Surgical History: Reports: Carpal Tunnel, ORIF, Other (See Below) Other Musculoskeletal Surgeries/Procedures:: Cubital tunnel release, Transposition of right Ulnar nerve, ORIF right ankle- no hardware used Social & Family History - Family History Family Medical History: No Pertinent Family History - Tobacco Use Tobacco Use Status *Q: Never Tobacco User - Caffeine Use Caffeine Use: Reports: None - Recreational Drug Use Recreational Drug Use: No ED ROS GENERAL - Review of Systems Review Of Systems: Comprehensive ROS is negative, except as noted in HPI. ED EXAM, GENERAL - Physical Exam Exam: See Below Exam Limited By: No Limitations General Appearance: Alert, WD/WN, No Apparent Distress Ears: Hearing Grossly Normal Throat/Mouth: Normal Voice, No Airway Compromise Head: Atraumatic, Normocephalic Neck: Normal Inspection Respiratory/Chest: No Respiratory Distress, Lungs Clear, Normal Breath Sounds, No Accessory Muscle Use Cardiovascular: Normal Peripheral Pulses, Regular Rate, Rhythm Extremities: Normal Inspection Neurological: Alert, Normal Cognition, Normal Gait Psychiatric: Normal Affect, Normal Mood Skin Exam: Warm, Dry, Intact, Normal Color #1 Interpretation EKG Date: 11/09/20 Time: 16:41 Rhythm: NSR Rate (Beats/Min): 84 [place]: Normal P-Wave: Present QRS: Normal ST-T: Normal QT: Normal HI/PQ Interval: 209 Comparison: NA - No Prior EKG EKG Interpretation Comments: normal EKG Course - Vital Signs Last Recorded V/S: Last Vital Signs Temp 97.2 F 11/09/20 14:50 Pulse 83 11/09/20 17:43 Resp 18 11/09/20 17:43 BP 104/61 11/09/20 17:43 Pulse Ox 94 L 11/09/20 17:43 - Orders/Labs/Meds Orders: Active Orders 24 hr Category Date Time Status Orthostatic Vital Signs [RC] ASDIRECTED Care 11/09/20 16:43 Active Saline Lock Insert [OM.PC] Stat Oth 11/09/20 16:38 Ordered Labs: Laboratory Tests 11/09/20 11/09/20 11/09/20 Range/Units 16:58 16:58 17:11 WBC 13.80 H (4.0-11.0) K/uL RBC 5.12 (4.30-5.90) M/uL Hgb 14.3 (12.0-16.0) g/dL Hct 42.7 (36.0-46.0) % MCV 83.4 (80.0-98.0) fL MCH 27.9 (27.0-32.0) pg MCHC 33.5 (31.0-37.0) g/dL RDW Std Deviation 46.8 (28.0-62.0) fl RDW Coeff of Sebastien 16 H (11.0-15.0) % Plt Count 273 (150-400) K/uL MPV 11.40 (7.40-12.00) fL Neut % (Auto) 71.5 (48.0-80.0) % Lymph % (Auto) 20.9 (16.0-40.0) % [place] % (Auto) 5.6 (0.0-15.0) % Eos % (Auto) 1.7 (0.0-7.0) % Baso % (Auto) 0.3 (0.0-1.5) % Neut # (Auto) 9.9 H (1.4-5.7) K/uL Lymph # (Auto) 2.9 H (0.6-2.4) K/uL [place] # (Auto) 0.8 (0.0-0.8) K/uL Eos # (Auto) 0.2 (0.0-0.7) K/uL Baso # (Auto) 0.0 (0.0-0.1) K/uL Nucleated RBC % 0.0 /100WBC Nucleated RBCs # 0 K/uL Sodium 135 L (136-145) mmol/L Potassium 3.0 L (3.5-5.1) mmol/L Chloride 97 L (98-107) mmol/L Carbon Dioxide 30.8 (21.0-32.0) mmol/L BUN 20 H (7.0-18.0) mg/dL Creatinine 1.2 H (0.6-1.0) mg/dL Est Cr Clr Drug Dosing 45.98 mL/min Estimated GFR (MDRD) 46.1 ml/min Glucose 115 H (74-106) mg/dL Lactic Acid 1.2 (0.4-2.0) mmol/L Calcium 8.7 (8.5-10.1) mg/dL Magnesium 1.6 L (1.8-2.4) mg/dL Total Bilirubin 0.4 (0.2-1.0) mg/dL AST 18 (15-37) IU/L ALT 22 (14-63) IU/L Alkaline Phosphatase 136 H (46-116) U/L Total Protein 8.0 (6.4-8.2) g/dL Albumin 2.9 L (3.4-5.0) g/dL Globulin 5.1 H (2.6-4.0) g/dL Albumin/Globulin Ratio 0.6 L (0.9-1.6) Meds: Medications Discontinued Medications Generic Name Dose Route Start Last Admin Trade Name Freq PRN Reason Stop Dose Admin Sodium Chloride 1,000 mls @ 999 mls/hr 11/09/20 16:38 11/09/20 17:05 Normal Saline IV 11/09/20 17:38 999 mls/hr .Bolus ONE Administration Magnesium Oxide 800 mg 11/09/20 17:31 11/09/20 17:43 Magnesium Oxide 400 Mg Tab PO 11/09/20 17:32 800 mg ONETIME ONE Administration Potassium Chloride 40 meq 11/09/20 17:31 11/09/20 17:43 Potassium Chloride 20 Meq Tab.Er PO 11/09/20 17:32 40 meq ONETIME ONE Administration Sodium Chloride 10 ml 11/09/20 16:38 Sodium Chloride 0.9% 10 Ml Syringe FLUSH ASDIRECTED PRN Keep Vein Open Sodium Chloride 2.5 ml 11/09/20 16:38 Sodium Chloride 0.9% 2.5 Ml Syringe FLUSH ASDIRECTED PRN Keep Vein Open - Re-Assessments/Exams Free Text/Narrative Re-Assessment/Exam: 11/09/20 16:43 Patient is noted to be hypotensive to 83/50. Will give a liter fluid bolus and get basic labs. I explained to patient please discontinue her verapamil and please switch to 12.5 mg of hydrochlorothiazide 11/09/20 17:47 Blood pressure is improved after IV fluid bolus. Departure - Departure Time of Disposition: 17:46 Disposition: Home, Self-Care 01 Condition: Good Clinical Impression: Hypotension Qualifiers: Hypotension type: other hypotension type Qualified Code(s): I95.89 - Other hypotension Instructions: Hypotension, [id number] Referrals: Britney Cook DO [Primary Care Provider] - Forms: ED Department Discharge Additional Instructions: Please discontinue your verapamil. I have sent a prescription for a medication called hydrochlorothiazide which is very similar to the chlorthalidone that you were taking. It is a lower dose. The following information is given to patients seen in the emergency department who are being discharged to home. This information is to outline your options for follow-up care. We provide all patients seen in our emergency department with a follow-up referral. The need for follow-up, as well as the timing and circumstances, are variable depending upon the specifics of your emergency department visit. If you don't have a primary care physician on staff, we will provide you with a referral. We always advise you to contact your personal physician following an emergency department visit to inform them of the circumstance of the visit and for follow-up with them and/or the need for any referrals to a consulting specialist. The emergency department will also refer you to a specialist when appropriate. This referral assures that you have the opportunity for follow-up care with a specialist. All of these measure are taken in an effort to provide you with optimal care, which includes your follow-up. Under all circumstances we always encourage you to contact your private physician who remains a resource for coordinating your care. When calling for follow-up care, please make the office aware that this follow-up is from your recent emergency room visit. If for any reason you are refused follow-up, please contact the [facility] Emergency Department at and asked to speak to the emergency department charge nurse. Please follow up with your primary care physician. If you do not have a primary care physician, see below: [facility] [address] [place] [id number] [facility] [address] [place] [address] [facility] [address] [place] [address] Sepsis Event Note (ED) - Evaluation Sepsis Screening Result: No Definite Risk - Focused Exam Vital Signs: Vital Signs Temp Pulse Resp BP Pulse Ox 11/09/20 17:43 83 18 104/61 94 L 11/09/20 14:50 97.2 F 88 16 83/50 L 95 - My Orders Last 24 Hours: My Active Orders 11/09/20 16:38 Saline Lock Insert [OM.PC] Stat 11/09/20 16:43 Orthostatic Vital Signs [RC] ASDIRECTED - Assessment/Plan Last 24 Hours: My Active Orders 11/09/20 16:38 Saline Lock Insert [OM.PC] Stat 11/09/20 16:43 Orthostatic Vital Signs [RC] ASDIRECTED
[2020-11-09 17:29] LABS: CARBON DIOXIDE,CO2 30.8 mmol/L (21.0-32.0)
[2020-11-09] MEDS ORDERED: Magnesium Oxide 400 MG Tab PO ONE (17:31)
[2020-11-09] MEDS ORDERED: Potassium Chloride 20 MEQ Tab.ER PO ONE (17:31)
[2020-11-09 18:32] VITALS: BP 123/84; PULSE 84
== END 2020-11-09 18:33 | disposition home or self-care (01) ==
LOC: MW.ED 13:18
DX: I95.89 Other hypotension (principal); I10 Essential (primary) hypertension; E78.00 Pure hypercholesterolemia, unspecified; E66.9 Obesity, unspecified; Z79.82 Long term (current) use of aspirin; Z79.899 Other long term (current) drug therapy; Z68.39 Body mass index [BMI] 39.0-39.9, adult
CPT/HCPCS: 36415; 80053; 83605; 83735; 85025; 93005; 99285; A9270; J7030

== ENCOUNTER 2021-06-10 22:56 | Emergency (ER) | payer MEDICARE, OTHER, MEDICAID ==
[2021-06-10] MEDS ORDERED: Ondansetron 4 MG/2 ML SDV IVPUSH ONE (23:00)
[2021-06-10] MEDS ORDERED: Sodium Chloride 0.9% 1,000 ML IV ONE (23:00)
[2021-06-10] MEDS ORDERED: Ketorolac 30 MG/ML SDV IVPUSH ONE (23:00)
[2021-06-11 00:11] LABS: CARBON DIOXIDE,CO2 31.6 mmol/L (21.0-32.0); POTASSIUM,K 2.6 mmol/L (3.5-5.1)
[2021-06-11] MEDS ORDERED: Magnesium Sulfate/Water 2 GM in Premix Bag 1 BAG IV ONE (00:17)
[2021-06-11] MEDS ORDERED: Potassium Chloride Riders 20 MEQ in Premix Bag 1 BAG IV ONE (00:17)
[2021-06-11] MEDS ORDERED: Potassium Chloride 20 MEQ Tab.ER PO ONE (00:17)
[2021-06-11 00:19] LABS: CORONAVIRUS COVID-19 NAA NEGATIVE (NEGATIVE); INFLUENZA A NAA NEGATIVE (NEGATIVE); INFLUENZA B NAA NEGATIVE (NEGATIVE)
[2021-06-11] MEDS ORDERED: Iopamidol 755 MG/ML 500 ML Multipack Bottle IVPUSH STA (00:48)
[2021-06-11] MEDS ORDERED: Acetaminophen/oxyCODONE 325-5 MG Tab PO ONE (02:36)
[2021-06-11 02:56] VITALS: PULSE 78
[2021-06-11 03:44] VITALS: BP 102/65
== END 2021-06-11 04:05 | disposition home or self-care (01) ==
LOC: MW.ED 22:56
DX: I95.1 Orthostatic hypotension (principal); E78.00 Pure hypercholesterolemia, unspecified; E11.9 Type 2 diabetes mellitus without complications; I10 Essential (primary) hypertension; K21.9 Gastro-esophageal reflux disease without esophagitis; E66.9 Obesity, unspecified; Z68.39 Body mass index [BMI] 39.0-39.9, adult; Z79.82 Long term (current) use of aspirin; Z20.822 Contact with and (suspected) exposure to COVID-19
CPT/HCPCS: 0240U; 36415; 71045; 74177; 80053; 81003; 82009; 83690; 83735; 83880; 84484; 85025; 86140; 93005; 96365; 96366; 96368; 96375; 99284; A9270; J1885; J2405; J3475; J3480; J7030; Q9967

== ENCOUNTER 2021-07-23 13:03 | Emergency (ER) | payer MEDICARE, OTHER, MEDICAID ==
[2021-07-23] MEDS ORDERED: Ondansetron 4 MG/2 ML SDV IVPUSH ONE (14:14)
[2021-07-23] MEDS ORDERED: Ketorolac 30 MG/ML SDV IVPUSH ONE (14:14)
[2021-07-23] MEDS ORDERED: Dexamethasone 10 MG/ML SDV IVPUSH ONE (14:14)
[2021-07-23] MEDS ORDERED: Sodium Chloride 0.9% 1,000 ML IV ONE (14:14)
[2021-07-23 14:56] LABS: CARBON DIOXIDE,CO2 29.5 mmol/L (21.0-32.0)
[2021-07-23] MEDS ORDERED: HYDROmorphone 1 MG/ML Syringe IVPUSH ONE (15:13)
[2021-07-23] MEDS ORDERED: HYDROmorphone 1 MG/ML Syringe IM ONE (17:42)
[2021-07-23] MEDS ORDERED: Lactated Ringers 1,000 ML IV STA (19:10)
[2021-07-23 21:05] VITALS: BP 110/71; PULSE 100
== END 2021-07-23 21:04 | disposition home or self-care (01) ==
LOC: MW.ED 13:03
DX: M54.50 Low back pain, unspecified (principal)
CPT/HCPCS: 36415; 72131; 80053; 81003; 85025; 96372; 96374; 96375; 99284; J1100; J1170; J1885; J2405; J3360; J7030

== ENCOUNTER 2022-04-19 06:58 | Day surgery (SDC) | payer MEDICARE, MEDICAID ==
[~2022-04-19 06:58] MED LIST changes: -ceFAZolin 2 GM in Premix Bag 1 BAG IV ONE
[2022-04-19] MEDS ORDERED: Bupivacaine 0.5% 30 ML SDV ONE (07:27)
[2022-04-19] MEDS ORDERED: Lidocaine 1% 20 ML MDV ONE (07:28)
[2022-04-19] MEDS ORDERED: Metoclopramide 10 MG/2 ML SDV IVPUSH PRN (07:31)
[2022-04-19] MEDS ORDERED: Albuterol 0.083% 2.5 MG/3 ML Neb Soln NEB PRN (07:31)
[2022-04-19] MEDS ORDERED: Naloxone 0.4 MG/ML SDV IVPUSH PRN (07:31)
[2022-04-19] MEDS ORDERED: fentaNYL 50 MCG/ML SDV IVPUSH PRN (07:31)
[2022-04-19] MEDS ORDERED: Morphine 2 MG/ML SYRINGE IVPUSH PRN (07:31)
[2022-04-19] MEDS ORDERED: HYDROmorphone 1 MG/ML Syringe IVPUSH PRN (07:31)
[2022-04-19] MEDS ORDERED: Ondansetron 4 MG/2 ML SDV IVPUSH PRN (07:31)
[2022-04-19] MEDS ORDERED: Ondansetron 4 MG/2 ML SDV ONE (07:45)
[2022-04-19] MEDS ORDERED: Dexamethasone 4 MG/ML 5 ML MDV ONE (07:45)
[2022-04-19] MEDS ORDERED: Sugammadex Sodium 200 MG/2 ML VIAL ONE (07:45)
[2022-04-19] MEDS ORDERED: Rocuronium Bromide 50 MG/5 ML Syringe ONE (07:45)
[2022-04-19] MEDS ORDERED: Lidocaine 2% 5 ML SDV ONE (07:45)
[2022-04-19] MEDS ORDERED: Propofol 200 MG/20 ML SDV ONE (07:46)
[2022-04-19] MEDS ORDERED: fentaNYL 100 MCG/2 ML SDV ONE (07:46)
[2022-04-19] MEDS ORDERED: Scopolamine 1.5 MG Transdermal Patch TOP ONE (08:00)
[2022-04-19] MEDS ORDERED: Ketorolac 30 MG/ML SDV ONE (08:36)
[2022-04-19] MEDS ORDERED: Albuterol 8 GM Inhaler ONE (08:59)
[2022-04-19] MEDS ORDERED: Acetaminophen/HYDROcodone 325-5 MG Tab PO PRN (09:05)
[2022-04-19] MEDS ORDERED: Lactated Ringers 1,000 ML IV SCH (09:15)
[2022-04-19 11:35] VITALS: BP 125/70; PULSE 96
== END 2022-04-19 11:10 | disposition home or self-care (01) ==
LOC: MW.SDS 06:58
PROVIDERS: ATTEND Surgery
DX: L82.0 Inflamed seborrheic keratosis (principal); L72.0 Epidermal cyst; L90.5 Scar conditions and fibrosis of skin; R42 Dizziness and giddiness; F32.A Depression, unspecified; E78.5 Hyperlipidemia, unspecified; K21.9 Gastro-esophageal reflux disease without esophagitis; I10 Essential (primary) hypertension; G43.909 Migraine, unspecified, not intractable, without status migrainosus; E11.40 Type 2 diabetes mellitus with diabetic neuropathy, unspecified; E66.9 Obesity, unspecified; F17.210 Nicotine dependence, cigarettes, uncomplicated; Z91.040 Latex allergy status; Z79.4 Long term (current) use of insulin; Z79.899 Other long term (current) drug therapy
CPT/HCPCS: 11402; 12031; 82947; A9270; J1885; J2405; J2704; J3010; J3490; J7120; 00400; 12032; 88305; J1100

== ENCOUNTER 2022-06-07 12:19 | Emergency (ER) | payer MEDICARE, MEDICAID ==
[2022-06-07] MEDS ORDERED: Sodium Chloride 0.9% 2.5 ML Syringe FLUSH PRN (12:42)
[2022-06-07] MEDS ORDERED: Sodium Chloride 0.9% 1,000 ML IV ONE ×2 (12:42→14:39)
[2022-06-07] MEDS ORDERED: Sodium Chloride 0.9% 10 ML Syringe FLUSH PRN (12:42)
[2022-06-07 13:41] LABS: CARBON DIOXIDE,CO2 31.4 mmol/L (21.0-32.0); POTASSIUM,K 3.9 mmol/L (3.5-5.1)
[2022-06-07] MEDS ORDERED: Ketorolac 30 MG/ML SDV IVPUSH ONE (14:53)
[2022-06-07 15:55] VITALS: BP 114/74; PULSE 82
== END 2022-06-07 16:28 | disposition home or self-care (01) ==
LOC: MW.ED 12:19
DX: I95.89 Other hypotension (principal); E86.0 Dehydration; R35.89 Other polyuria; I10 Essential (primary) hypertension; E11.9 Type 2 diabetes mellitus without complications; K21.9 Gastro-esophageal reflux disease without esophagitis; E66.9 Obesity, unspecified; Z91.048 Other nonmedicinal substance allergy status; Z79.82 Long term (current) use of aspirin; Z79.899 Other long term (current) drug therapy; Z79.4 Long term (current) use of insulin; Z86.16 Personal history of COVID-19; Z72.0 Tobacco use; Z68.39 Body mass index [BMI] 39.0-39.9, adult
CPT/HCPCS: 36415; 71045; 80053; 81003; 84484; 85025; 93005; 96361; 96374; 99285; J1885; J3490; J7030; 93010; 99284

== ENCOUNTER 2023-02-12 14:21 | Observation (INO) | payer MEDICARE, MEDICAID ==
[2023-02-12] MEDS ORDERED: Sodium Chloride 0.9% 500 ML IV ONE (14:23)
[2023-02-12 15:22] LABS: BASOPHILS ABSOLUTE AUTO 0.06 K/uL (0.00-0.20); BASOPHILS PERCENT AUTO 0.7 % (0.0-1.0); EOSINOPHILS ABSOLUTE AUTO 0.14 K/uL (0.00-0.45); EOSINOPHILS PERCENT AUTO 1.6 % (0.0-6.0); HEMATOCRIT 42.1 % (37.0-47.0); HEMOGLOBIN 14.1 g/dL (12.0-16.0); IMMATURE GRAN ABSOLUTE AUTO 0.03 K/uL (0.00-0.05); IMMATURE GRAN PERCENT AUTO 0.3 % (0.0-0.4); LYMPHOCYTES ABSOLUTE AUTO 2.38 K/uL (1.00-4.80); MEAN CORPUSCULAR HEMOGLOBIN 28.3 pg (28.0-32.0); MEAN CORPUSCULAR HGB CONC 33.5 g/dL (32.0-36.0); MEAN CORPUSCULAR VOLUME 84.5 fL (83.0-99.0); MONOCYTES ABSOLUTE AUTO 0.72 K/uL (0.00-0.80); MONOCYTES PERCENT AUTO 8.2 % (0.0-8.0); NEUTROPHILS PERCENT AUTO 62.2 % (41.0-71.0); PLATELET COUNT,PLT 255 K/uL (150-400); RED BLOOD CELL COUNT 4.98 M/uL (4.10-5.30); WHITE BLOOD CELL COUNT,WBC 8.83 K/uL (3.9-11.3)
[2023-02-12 15:41] LABS: A/G RATIO 0.7 (0.9-1.6); ALBUMIN 2.6 g/dL (3.4-5.0); BILIRUBIN TOTAL 0.2 mg/dL (0.2-1.0); CALCIUM 8.1 mg/dL (8.5-10.1); CARBON DIOXIDE,CO2 28.2 mmol/L (21.0-32.0); CREATININE 0.9 mg/dL (0.6-1.0); EST CRCL DRUG DOSING (CG) 59.81 mL/min; POTASSIUM,K 3.7 mmol/L (3.5-5.1); PROTEIN TOTAL,TP 6.3 g/dL (6.4-8.2)
[2023-02-12 17:57] LABS: APPEARANCE,URINE CLEAR; BILIRUBIN,URINE NEGATIVE (NEGATIVE); COLOR,URINE YELLOW; GLUCOSE,URINE >=1000 mg/dL (NEGATIVE); KETONES,URINE NEGATIVE (NEGATIVE); LEUKOCYTE ESTERASE,URINE NEGATIVE (NEGATIVE); NITRITE,URINE NEGATIVE (NEGATIVE); OCCULT BLOOD,URINE NEGATIVE (NEGATIVE); PROTEIN,URINE NEGATIVE (NEGATIVE); UROBILINOGEN,URINE 0.2 EU/dL (<2.0)
[2023-02-12] MEDS ORDERED: Acetaminophen 500 MG Tab PO ONE (18:03)
[2023-02-12] MEDS ORDERED: Iopamidol 755 MG/ML 500 ML Multipack Bottle IVPUSH ONE (19:01)
[2023-02-12] MEDS ORDERED: Nortriptyline 25 MG Cap PO ONE (19:26)
[2023-02-12] MEDS ORDERED: tiZANidine 4 MG Tab PO STA (19:27)
[2023-02-12] MEDS ORDERED: Sodium Chloride 0.9% 1,000 ML IV ONE (20:01)
[2023-02-13] MEDS ORDERED: Ibuprofen 400 MG Tab PO PRN (00:43)
[2023-02-13] MEDS ORDERED: Albuterol/Ipratropium 3.0-0.5 MG/3 ML Neb Soln NEB PRN (00:43)
[2023-02-13] MEDS ORDERED: Acetaminophen 650 MG Supp RECTAL PRN (00:43)
[2023-02-13] MEDS ORDERED: Ondansetron 4 MG/2 ML SDV IVPUSH PRN (00:43)
[2023-02-13] MEDS ORDERED: Polyethylene Glycol 3350 Powder 17 GM Packet PO PRN (00:43)
[2023-02-13] MEDS ORDERED: Sodium Chloride 0.9% 1,000 ML IV SCH (00:45)
[2023-02-13] MEDS ORDERED: 50% Dextrose in Water 50 ML Syringe IVPUSH PRN (00:48)
[2023-02-13] MEDS ORDERED: Glucagon,Human Recombinant 1 MG Vial IM PRN (00:48)
[2023-02-13] MEDS: Acetaminophen 325 MG Tab PO PRN ×2 (03:51→08:43)
[2023-02-13 06:31] LABS: CALCIUM 8.4 mg/dL (8.5-10.1); CARBON DIOXIDE,CO2 30.3 mmol/L (21.0-32.0); CREATININE 0.9 mg/dL (0.6-1.0); EST CRCL DRUG DOSING (CG) 59.81 mL/min; POTASSIUM,K 3.3 mmol/L (3.5-5.1)
[2023-02-13] MEDS: Insulin Aspart 100 Units/ML 3 ML Pen SUBCUT SCH ×2 (07:37→11:50)
[2023-02-13] MEDS ORDERED: Topiramate 50 MG Tab PO SCH (09:00)
[2023-02-13] MEDS ORDERED: Potassium Chloride 20 MEQ Tab.ER PO ONE (12:02)
[2023-02-13 16:41] VITALS: BP 138/88; PULSE 82
== END 2023-02-13 16:45 | disposition home health service (06) ==
LOC: MW.ED 14:21 → MW.MS 22:12
PROVIDERS: ADMIT Family Medicine; ATTEND Family Medicine
DX: I95.1 Orthostatic hypotension (principal); E11.9 Type 2 diabetes mellitus without complications; K21.9 Gastro-esophageal reflux disease without esophagitis; I10 Essential (primary) hypertension; F32.A Depression, unspecified; E66.9 Obesity, unspecified; Z79.82 Long term (current) use of aspirin; Z79.4 Long term (current) use of insulin; Z79.899 Other long term (current) drug therapy; Z91.048 Other nonmedicinal substance allergy status
CPT/HCPCS: 36415; 70450; 71045; 74177; 80048; 80053; 81003; 82947; 84484; 85025; 85610; 93005; 99285; A9270; J1815; J7030; J7040; Q9967; 96360; 96361; G0378

== ENCOUNTER 2023-09-09 19:05 | Emergency (ER) | payer MEDICARE, MEDICAID ==
[2023-09-09 19:32] LABS: BASOPHILS ABSOLUTE AUTO 0.04 K/uL (0.00-0.20); BASOPHILS PERCENT AUTO 0.3 % (0.0-1.0); EOSINOPHILS ABSOLUTE AUTO 0.09 K/uL (0.00-0.45); EOSINOPHILS PERCENT AUTO 0.8 % (0.0-6.0); HEMATOCRIT 44.4 % (37.0-47.0); HEMOGLOBIN 14.9 g/dL (12.0-16.0); IMMATURE GRAN ABSOLUTE AUTO 0.06 K/uL (0.00-0.05); IMMATURE GRAN PERCENT AUTO 0.5 % (0.0-0.4); LYMPHOCYTES ABSOLUTE AUTO 1.91 K/uL (1.00-4.80); LYMPHOCYTES PERCENT AUTO 16.5 % (24.0-44.0); MEAN CORPUSCULAR HEMOGLOBIN 28.2 pg (28.0-32.0); MEAN CORPUSCULAR HGB CONC 33.6 g/dL (32.0-36.0); MEAN CORPUSCULAR VOLUME 84.1 fL (83.0-99.0); MEAN PLATELET VOLUME 11.5 fL (9.4-12.3); MONOCYTES ABSOLUTE AUTO 0.78 K/uL (0.00-0.80); MONOCYTES PERCENT AUTO 6.7 % (0.0-8.0); NEUTROPHILS ABSOLUTE AUTO 8.69 K/uL (1.80-7.70); NEUTROPHILS PERCENT AUTO 75.2 % (41.0-71.0); PLATELET COUNT,PLT 266 K/uL (150-400); RED BLOOD CELL COUNT 5.28 M/uL (4.10-5.30); WHITE BLOOD CELL COUNT,WBC 11.57 K/uL (3.9-11.3)
[2023-09-09 20:02] LABS: A/G RATIO 0.8 (0.9-1.6); ALBUMIN 3.1 g/dL (3.4-5.0); BILIRUBIN TOTAL 0.5 mg/dL (0.2-1.0); CALCIUM 8.6 mg/dL (8.5-10.1); CARBON DIOXIDE,CO2 24.8 mmol/L (21.0-32.0); CREATININE 1.1 mg/dL (0.6-1.0); EST CRCL DRUG DOSING (CG) 46.38 mL/min; MAGNESIUM 1.5 mg/dL (1.8-2.4); POTASSIUM,K 3.3 mmol/L (3.5-5.1); PROTEIN TOTAL,TP 6.8 g/dL (6.4-8.2); TSH ULTRASENSITIVE 2.6 uIU/mL (0.36-3.74)
[2023-09-09] MEDS: Magnesium Sulfate/Water 2 GM in Premix Bag 1 BAG IV ONE (21:01)
[2023-09-09] MEDS: Sodium Chloride 0.9% 1,000 ML IV ONE (21:01)
[2023-09-09] MEDS: Potassium Chloride 20 MEQ Tab.ER PO ONE (21:01)
[2023-09-09 23:17] LABS: MAGNESIUM 2.1 mg/dL (1.8-2.4)
[2023-09-10 00:03] VITALS: BP 113/67; PULSE 65
== END 2023-09-10 00:03 | disposition home or self-care (01) ==
LOC: MW.ED 19:05
DX: R55 Syncope and collapse (principal); E87.6 Hypokalemia; E83.42 Hypomagnesemia; R94.31 Abnormal electrocardiogram [ECG] [EKG]; I10 Essential (primary) hypertension; E78.00 Pure hypercholesterolemia, unspecified; K21.9 Gastro-esophageal reflux disease without esophagitis; E11.9 Type 2 diabetes mellitus without complications; E66.9 Obesity, unspecified; Z90.49 Acquired absence of other specified parts of digestive tract; Z90.710 Acquired absence of both cervix and uterus; Z79.899 Other long term (current) drug therapy; Z79.82 Long term (current) use of aspirin; Z79.4 Long term (current) use of insulin
CPT/HCPCS: 36415; 70450; 80053; 82550; 83735; 83880; 84132; 84443; 84484; 85025; 93005; 96365; 96366; 99285; A9270; J3475; J7030; 93010; 99283